=== PATIENT | female | born 1955 | race Caucasian/White ===

== ENCOUNTER → 2016-12-23 | Outpatient (CLI) | payer BC | LOC: LAB 09:52 | DX: D72.829 Elevated white blood cell count, unspecified (principal) | CPT/HCPCS: 87086 ==

== ENCOUNTER → 2021-01-30 | Outpatient (CLI) | payer BC, OTHER ==
[~2021-01-30] MED LIST: IPRAT-ALBUT 0.5-3 ML INH; NEBULIZER UNIT; PREDNISONE 20 M20 MG GT; ZITHROMAX250 MG PO
== END ==
LOC: KOH-I 15:33
DX: Z03.818 Encounter for observation for suspected exposure to other biological agents ruled out (principal); J20.9 Acute bronchitis, unspecified; J43.9 Emphysema, unspecified
CPT/HCPCS: 71046

== ENCOUNTER → 2021-06-19 | Outpatient (CLI) | payer BC | LOC: KOH-I 15:31 | DX: Z20.828 Contact with and (suspected) exposure to other viral communicable diseases (principal) | CPT/HCPCS: 71046 ==

== ENCOUNTER → 2022-05-05 | Outpatient (CLI) | payer MEDICARE | LOC: LAB 08:11 | DX: E27.8 Other specified disorders of adrenal gland (principal) | CPT/HCPCS: 36415; 82533; G0480 ==

== ENCOUNTER → 2022-05-15 | Outpatient (CLI) | payer MEDICARE | LOC: LAB 08:17 | DX: E27.8 Other specified disorders of adrenal gland (principal) | CPT/HCPCS: 36415; 82533; G0480 ==